=== PATIENT | male | born 1940 | race Caucasian/White ===

== ENCOUNTER 2016-06-25 10:50 | Outpatient (CLI) | payer OTHER | END 2016-06-25 10:51 | disposition home or self-care (01) | DX: M50.31 Other cervical disc degeneration, high cervical region (principal); M47.892 Other spondylosis, cervical region ==

== ENCOUNTER 2017-10-13 08:45 | Outpatient (CLI) | payer OTHER ==
[2017-10-13] MEDS ORDERED: ALBUTEROL NEB 2.5 MG/3 ML INH ONE (10:00)
== END 2017-10-13 08:46 | disposition home or self-care (01) ==
LOC: RT 08:45
PROVIDERS: ATTEND Nurse Practitioner Family
DX: J45.31 Mild persistent asthma with (acute) exacerbation (principal)
CPT/HCPCS: 94060; 94664

== ENCOUNTER 2017-12-16 11:38 | Outpatient (CLI) | payer OTHER ==
--- NOTE | 2017-12-16 16:18 | XRAY Report ---
Reason: COUGH Procedure Date: 12/16/2017 Accession Number: [id number] / [id number] Procedure: XRS - Chest 2 View X-Ray CPT Code: 45976 FULL RESULT: EXAM: CHEST RADIOGRAPHY EXAM DATE: 12/16/2017 11:49 AM. CLINICAL HISTORY: Cough. COMPARISON: None. TECHNIQUE: 2 views. FINDINGS: Lungs/Pleura: No focal opacities evident. No pleural effusion. No pneumothorax. Normal volumes. Mediastinum: Heart and mediastinal contours are unremarkable. Other: None. IMPRESSION: Normal 2-view chest radiography. [facility]
== END 2017-12-16 11:39 | disposition home or self-care (01) ==
LOC: DI.S 11:38
PROVIDERS: ATTEND Nurse Practitioner Family
DX: R05 Cough (principal)
CPT/HCPCS: 71046

== ENCOUNTER 2017-12-25 09:09 | Outpatient (CLI) | payer MEDICARE | END 2017-12-25 09:10 | disposition home or self-care (01) | LOC: DI 09:09 | PROVIDERS: ATTEND Nurse Practitioner Family | DX: R06.02 Shortness of breath (principal); I51.7 Cardiomegaly | CPT/HCPCS: 93306 ==

== ENCOUNTER 2019-02-03 11:19 | Outpatient (CLI) | payer MEDICARE ==
--- NOTE | 2019-02-04 15:19 | XRAY Report ---
Reason: RT KNEE PAIN Procedure Date: 02/03/2019 Accession Number: [id number] / [id number] Procedure: XR - Knee 3 View RT CPT Code: Final Report FULL RESULT: EXAM: RIGHT KNEE RADIOGRAPHY EXAM DATE: 02/03/2019 11:42 AM. CLINICAL HISTORY: RT KNEE PAIN. COMPARISON: None. TECHNIQUE: 3 views. FINDINGS: Bones: No fracture seen. No acute osseous abnormality. Joints: No dislocation seen. Very mild degenerative joint disease in the medial and patellofemoral compartments. Probable small joint effusion. Soft Tissues: Vascular calcifications. IMPRESSION: 1. Mild degenerative changes and probable small joint effusion. [facility]
--- NOTE | 2019-02-06 14:09 | Ultrasound Report ---
Reason: PAIN IN RT KNEE Procedure Date: 02/03/2019 Accession Number: [id number] / [id number] Procedure: US - Ext Limited Non Vascular CPT Code: Final Report FULL RESULT: EXAM: RIGHT UPPER EXTREMITY ULTRASOUND - LIMITED EXAM DATE: 02/03/2019 01:02 PM. CLINICAL HISTORY: Pain in right knee. COMPARISON: None. TECHNIQUE: Real-time scanning was performed with static images obtained. FINDINGS: The right popliteal fossa region was interrogated by focused ultrasound. No collection or mass is identified. Visualized soft tissues are within normal limits. IMPRESSION: No collection or mass is seen. [facility]
== END 2019-02-03 11:20 | disposition home or self-care (01) ==
LOC: DI 11:19
PROVIDERS: ATTEND Registered Nurse
DX: M17.11 Unilateral primary osteoarthritis, right knee (principal)
CPT/HCPCS: 76882

== ENCOUNTER 2020-09-23 09:51 | Outpatient (CLI) | payer MEDICARE ==
[2020-09-23 15:46] LABS: ALBUMIN 4.4 g/dL (3.2-5.5); ALBUMIN/GLOBULIN RATIO 1.5 (1.0-2.2); CALCIUM 9.8 mg/dL (8.5-10.3); CREATININE 0.8 mg/dL (0.6-1.2); POTASSIUM 4.1 mmol/L (3.5-5.0); TOTAL PROTEIN 7.3 g/dL (6.7-8.2)
== END 2020-09-23 09:52 | disposition home or self-care (01) ==
LOC: LAB.S 09:51
PROVIDERS: ATTEND Family Medicine
DX: I10 Essential (primary) hypertension (principal)
CPT/HCPCS: 36415; 80053

== ENCOUNTER 2020-12-09 14:03 | Outpatient (CLI) | payer MEDICARE ==
--- NOTE | 2020-12-09 16:26 | XRAY Report ---
PROCEDURE: Hip w/Pelvis 2-3V RT INDICATIONS: PAIN IN RIGHT HIP JOINT TECHNIQUE: AP pelvis with lateral view(s) of the right hip(s). COMPARISON: None. FINDINGS: Bones: No fractures or dislocations. Right worse than left bilateral hip joint osteoarthritic hitchcock es are seen. No evidence of avascular necrosis of femoral head. Pelvic ring appears intact. No suspi cious bony lesions. 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 Soft tissues: The visualized bowel gas pattern is normal. No suspicious soft tissue calcifications. IMPRESSION: Moderate right worse than left bilateral hip joint osteoarthritis. No fracture or disloca tion. No evidence of avascular necrosis. Reviewed by: Clay Montes MD on 12/09/2020 4:25 PM PDT Approved by: Clay Montes MD on 12/09/2020 4:25 PM PDT Station ID: [id number]
== END 2020-12-09 14:04 | disposition home or self-care (01) ==
LOC: DI.S 14:03
PROVIDERS: ATTEND Registered Nurse
DX: M16.0 Bilateral primary osteoarthritis of hip (principal)

== ENCOUNTER 2021-05-13 11:36 | Outpatient (CLI) | payer MEDICARE ==
--- NOTE | 2021-05-13 15:36 | XRAY Report ---
PROCEDURE: Chest 2 View X-Ray INDICATIONS: Chest wall pain TECHNIQUE: 2 view(s) of the chest. COMPARISON: None. FINDINGS: Surgical changes and devices: None. Lungs and pleura: No pleural effusions or pneumothorax. Lungs are clear. Mediastinum: Mediastinal contours are normal. Heart size is normal. Bones and chest wall: No suspicious bony abnormalities. Soft tissues appear unremarkable. IMPRESSION: No acute cardiopulmonary process demonstrated radiographically. Reviewed by: Keny Viera MD on 05/13/2021 3:35 PM PDT Approved by: Keny Viera MD on 05/13/2021 3:35 PM PDT Station ID: [id number]
== END 2021-05-13 11:37 | disposition home or self-care (01) ==
LOC: DI.S 11:36
PROVIDERS: ATTEND Internal Medicine
DX: R07.89 Other chest pain (principal)